=== PATIENT | female | born 1945 | race Caucasian/White ===

== ENCOUNTER 2019-11-26 16:12 | Inpatient (IN) | payer MEDICARE ==
[~2019-11-26] VITALS: Ht 154.9 cm; Wt 80.4 kg
[2019-11-26] MEDS ORDERED: PRED10TA2 PO (16:23)
[2019-11-26] MEDS ORDERED: TRIA37.53 PO (16:23)
[2019-11-26] MEDS ORDERED: LEVO100T5 PO (16:23)
[2019-11-26] MEDS ORDERED: ONDA-83 PO (16:23)
[2019-11-26] MEDS ORDERED: OMEP-218 PO (16:23)
[2019-11-26] MEDS ORDERED: CEFD1CAP8 PO (16:23)
[2019-11-26] MEDS ORDERED: ATEN50TA2 PO (16:23)
[2019-11-26] MEDS: NS 1,000 ML IV SCH (17:23)
[2019-11-26 17:50] LABS: BASO # 0.1 10^3/uL (0.0-0.2); BASO % 0.2 % (0.0-1.0); HEMATOCRIT 35.1 % (36.0-47.0); HEMOGLOBIN 12.7 g/dl (12.0-15.5); LYMPH % 4.1 % (24.0-44.0); MEAN CORPUSCULAR HEMOGLOBIN 32.3 pg (27.0-33.0); MEAN CORPUSCULAR HGB CONC 36.2 g/dl (32.0-36.5); MEAN CORPUSCULAR VOLUME 89.3 fl (80.0-96.0); MONO % 4.1 % (0.0-5.0); NEUTROPHILS # 21.6 10^3/uL (1.5-8.5); NEUTROPHILS % 90.2 % (36.0-66.0); PLATELET COUNT, AUTOMATED 373 10^3/uL (150-450); RED BLOOD COUNT 3.93 10^6/uL (4.00-5.40); WHITE BLOOD COUNT 23.9 10^3/uL (4.0-10.0)
[2019-11-26 18:01] LABS: OSMOLALITY SERUM 251 MOSM/KG (280-301)
--- NOTE | 2019-11-26 18:06 | REP ---
Right knee series: Five views. History: Hyponatremia. Findings: Five views of the right knee demonstrate osteoarthritic patellofemoral spurring. There is mild medial and lateral compartment osteoarthritic spurring as well. There is old spurring at the proximal attachment of the medial collateral ligament. There is fullness in the suprapatellar bursa suggestive of a joint effusion. Impression: Three compartment osteoarthritis. Probable joint effusion. No fracture or other acute abnormality. Electronically Signed by Andres Barney MD 11/26/2019 05:57 P
--- NOTE | 2019-11-26 18:07 | REP ---
Chest x-ray: Single view. History: Hyponatremia. No comparison study. Findings: Monitoring electrodes are seen. The lungs are symmetrically aerated and clear. The pleural angles are sharp. Right hemidiaphragm is slightly elevated. The heart is not enlarged. Aorta is calcific and a little tortuous. There are degenerative changes in the thoracic spine. Impression: Slightly elevated right hemidiaphragm. Otherwise no acute disease. Electronically Signed by Andres Barney MD 11/26/2019 05:58 P
[2019-11-26 18:12] LABS: CREATININE,RANDOM URINE 85.6 MG/DL
[2019-11-26 18:18] LABS: ERYTHROCYTE SEDIMENTATION RATE 79 mm/hr (0-30)
[2019-11-26 18:55] LABS: ALBUMIN 2.6 GM/DL (3.2-5.2); ALT/SGPT 35 U/L (12-78); BILIRUBIN,DIRECT 0.3 MG/DL (0.0-0.2); BILIRUBIN,TOTAL 0.7 MG/DL (0.2-1.0); BLOOD UREA NITROGEN 29 MG/DL (7-18); CALCIUM LEVEL 9.1 MG/DL (8.8-10.2); CARBON DIOXIDE LEVEL 28 MEQ/L (21-32); CHLORIDE LEVEL 77 MEQ/L (98-107); CREATININE FOR GFR 1.17 MG/DL (0.55-1.30); FREE T4 1.38 NG/DL (0.76-1.46); GLOMERULAR FILTRATION RATE 47.9 (>39); GLUCOSE, FASTING 133 MG/DL (70-100); LIPASE 87 U/L (73-393); MAGNESIUM LEVEL 1.6 MG/DL (1.8-2.4); POTASSIUM SERUM 3.9 MEQ/L (3.5-5.1); RHEUMATOID FACTOR QUANT < 10.0 IU/ML (<15.0); SODIUM LEVEL 117 MEQ/L (136-145); TOTAL PROTEIN 6.9 GM/DL (6.4-8.2)
--- NOTE | 2019-11-26 18:59 | ECGEPIP ---
[facility] - ED Test Date: 2019-11-26 Pat Name: BISMARK NEGRO Department: Room: - Gender: Female Technical Sales Director: apoorva : 1945 Requested By: Claire Metcalf Order Number: [id number] Reading MD: Juan Spivey Measurements Intervals [place] Rate: 65 P: 51 NC: 197 QRS: -27 QRSD: 105 T: 33 QT: 424 QTc: 443 Interpretive Statements SINUS RHYTHM POSSIBLE LEFT ATRIAL ENLARGEMENT BORDERLINE LEFT AXIS DEVIATION POOR R WAVE PROGRESSION NO PRIORS FOR COMPARISON Electronically Signed on 11-26-2019 18:59:30 EST by Juan Spivey
[2019-11-26] MEDS ORDERED: NS 1,000 ML IV ONE (19:15)
[2019-11-26] MEDS ORDERED: LIDOCAINE 1% SDV INJ 30 ML VIAL SC SCH (19:45)
[2019-11-26] MEDS ORDERED: LIDOCAINE 1% SDV 5 ML VIAL As Ordered ONE (19:57)
[2019-11-26] MEDS ORDERED: MAG SULF 1GM/100ML (MAG RUN) 1 GM in IV 1 EA IV ONE (20:00)
[2019-11-26] MEDS: OMEPRAZOLE 20 MG CAP PO SCH (21:00)
[2019-11-26] MEDS ORDERED: CEFDINIR 300 MG CAP (OMNICEF) PO SCH (21:00)
[2019-11-26] MEDS: ASPIRIN 81 MG ENTERIC TAB PO SCH (21:00)
[2019-11-26] MEDS ORDERED: KETOROLAC 30 MG/ML VIAL (J1885) IV ONE (21:45)
[2019-11-26] MEDS ORDERED: MORPHINE 2 MG/ML 1ML VIAL (J2270) IV PRN (21:45)
[2019-11-26 22:05] LABS: URIC ACID 7.2 MG/DL (2.6-6.0)
[2019-11-26] MEDS ORDERED: ASPI81TA85 PO (22:25)
[2019-11-27] VITALS (8 sets, daily range): BP systolic 105–149; BP diastolic 54–72
[2019-11-27] MEDS ORDERED: cefTRIAXone SOD 2 GM in D5W MINI-BAG PLUS 50 ML IV SCH ×2
[2019-11-27] MEDS ORDERED: MAG SULF 1GM/100ML (MAG RUN) 1 GM in IV 1 EA IV ONE ×2
[2019-11-27] MEDS ORDERED: ONDANSETRON 4 MG TAB (S0181) PO PRN
[2019-11-27 00:24] LABS: BLOOD UREA NITROGEN 29 MG/DL (7-18); CALCIUM LEVEL 8.4 MG/DL (8.8-10.2); CARBON DIOXIDE LEVEL 25 MEQ/L (21-32); CHLORIDE LEVEL 84 MEQ/L (98-107); CREATININE FOR GFR 1.04 MG/DL (0.55-1.30); GLOMERULAR FILTRATION RATE 54.8 (>39); GLUCOSE, FASTING 163 MG/DL (70-100); POTASSIUM SERUM 3.6 MEQ/L (3.5-5.1); RHEUMATOID FACTOR QUANT < 10.0 IU/ML (<15.0); SODIUM LEVEL 118 MEQ/L (136-145); URIC ACID 6.9 MG/DL (2.6-6.0)
[2019-11-27 00:34] LABS: OSMOLALITY SERUM 251 MOSM/KG (280-301)
[2019-11-27] MEDS: NS 1,000 ML IV SCH ×4 (02:22→23:56)
[2019-11-27] MEDS: LEVOTHYROXINE 100MCG TABLET (0.1MG) PO SCH (05:51)
--- NOTE | 2019-11-27 08:01 | REP ---
Clinical: Pain. Technique: AP, lateral, bilateral oblique views of the right and left hand. Findings: Right hand demonstrates generalized age-related changes as well as elements of moderate to advanced osteoarthritic disease involving the distal interphalangeal joints and to a lesser extent the proximal interphalangeal joint. Findings include subchondral sclerosis, joint space narrowing, marginal spurring. There is chronic subluxation noted at the second DIP joint. No acute fracture or dislocation. Left hand demonstrates generalized age-related changes as well as mild/early moderate osteoarthritic disease. Findings include subchondral sclerosis and joint space narrowing primarily involving the distal interphalangeal joints and proximal interphalangeal joints. No acute fracture or dislocation. Impression: Moderate/advanced osteoarthritic changes primarily involving the right hand and DIP joints. Electronically Signed by Durga Hull MD 11/27/2019 07:53 A
[2019-11-27 08:29] LABS: BLOOD UREA NITROGEN 33 MG/DL (7-18); CALCIUM LEVEL 8.5 MG/DL (8.8-10.2); CARBON DIOXIDE LEVEL 27 MEQ/L (21-32); CHLORIDE LEVEL 86 MEQ/L (98-107); CREATININE FOR GFR 0.96 MG/DL (0.55-1.30); GLOMERULAR FILTRATION RATE > 60.0 (>39); GLUCOSE, FASTING 94 MG/DL (70-100); POTASSIUM SERUM 3.6 MEQ/L (3.5-5.1); SODIUM LEVEL 122 MEQ/L (136-145)
[2019-11-27] MEDS: atenoloL 50 MG TAB PO SCH (09:00)
[2019-11-27] MEDS: predniSONE 10 MG TAB PO SCH (12:17)
[2019-11-27 12:51] LABS: BLOOD UREA NITROGEN 33 MG/DL (7-18); CALCIUM LEVEL 8.8 MG/DL (8.8-10.2); CARBON DIOXIDE LEVEL 26 MEQ/L (21-32); CHLORIDE LEVEL 86 MEQ/L (98-107); CREATININE FOR GFR 0.92 MG/DL (0.55-1.30); GLOMERULAR FILTRATION RATE > 60.0 (>39); GLUCOSE, FASTING 100 MG/DL (70-100); POTASSIUM SERUM 3.5 MEQ/L (3.5-5.1); SODIUM LEVEL 120 MEQ/L (136-145)
--- NOTE | 2019-11-27 17:24 | HPE ---
DATE OF ADMISSION: 11/26/2019 CHIEF COMPLAINT: Right knee pain and swelling, bilateral thumb and fourth finger joint pains. HISTORY OF PRESENT ILLNESS: This is a 74-year-old female with a history of hypertension, hyperlipidemia, reflux, thyroid nodule on chronic Synthroid, type 2 diabetes, who complained of metacarpophalangeal joint and proximal interphalangeal joint pain in bilateral hands since Saturday and . She had a similar episode in October when she had pain, rated as 10 out of 10, without any swelling but it lasted all day, unable to use her fingers and felt weak, unable to get up despite Tylenol two tablets every 6 hours, prompting her to see her primary care provider, Dr. Trinh, today. She has also had increasing pain initially in the left knee without any effusion, worse when she stands up and starts to walk around, 10 out of 10 pain, better when she is sitting and not moving. Has been using a cane without fever, chills, trauma or falls at home. The right knee pain has started today and started to swell that she noticed since yesterday. She was seen at [facility] by Dr. Trinh, who did blood tests. She was noted to have a white count of 23,000 and was subsequently given Augmentin to take and prompted to come to the emergency room for further evaluation when her sodium level came back at 117. The patient has noticed some blurred vision over the last 2 days. No headaches. No confusion. No changes in memory. No seizure like activity. No prior episode of low sodium level. The patient denies drinking copious amounts of liquids, alcoholic beverages, and has been compliant with her medications. The patient was given prednisone and cefdinir and was asked to come to the emergency room for evaluation. Chest x- ray was normal. Serum and urine osmolarity and uric acid were not taken on admission. X-ray of the right knee shows probable joint effusion. Attempt by emergency room physician, Dr. Jose Cruz Ga, to aspirate and perform an arthrocentesis was unsuccessful. The patient was afebrile, but sed rate was 43 and ESR was 79. Procalcitonin level is pending. The patient otherwise denies any fever, chills, changes in weight, nasal congestion, sore throat, ear discharge. SHe does complain of blurred vision without any diplopia. Denies any headache, nausea, vomiting, diarrhea, abdominal pain, polydipsia or polyuria, dysuria, urgency, frequency, chest pain, pressure or tightness, palpitations, lightheadedness, dizziness, upper or lower extremity weakness. Secondary to severe pain, unable to perform her activities of daily living. The patient says that the pain in her joints in the bilateral hands were symmetric and started in early October, improved and then returned again now, now involving the left knee and the right knee. PAST MEDICAL HISTORY: 1. Hypertension. 2. Hyperlipidemia. 3. Reflux. 4. History of thyroid nodule, status post radiation. 5. Type 2 diabetes. 6. Small hiatal hernia. ALLERGIES: No known drug allergies. PAST SURGICAL HISTORY: 1. Ankle surgery. FAMILY HISTORY: Paternal and maternal grandparents are both . Brother of heart replacement complications. Father with lock jaw. Mother with diabetes. HOME MEDICATIONS: - triamterene/hydrochlorothiazide 37.5/25 mg daily - aspirin 81 mg at night - atenolol 50 mg daily - cefdinir 300 mg twice a day - levothyroxine 100 mcg daily - Prilosec 20 mg at night - Zofran 4 mg every 6 hours as needed - prednisone 10 mg as directed REVIEW OF SYSTEMS: As per history of present illness. 12-point system otherwise negative. PHYSICAL EXAMINATION: VITAL SIGNS: Temperature 98.1, pulse 64, respiratory rate 18, blood pressure 141/68, 97% on room air. GENERAL: The patient is awake, alert, oriented times three. Answering questions appropriately. No confusion. Face is symmetric. Tongue is midline. No jugular venous distention (JVD) or thyromegaly. No cervical lymphadenopathy. Moist mucous membranes. LUNGS: Clear to auscultation. No wheezing, rales or rhonchi. HEART: S1, S2. Sinus rhythm. No murmurs, rubs or gallops. ABDOMEN: Soft, nontender, nondistended. Positive bowel sounds. EXTREMITIES: No pitting edema. Right knee has minimal joint effusion, limited range of motion due to pain. The patient's metacarpophalangeal, proximal interphalangeal, and distal interphalangeal joints are without any effusion. White count 23.9, hemoglobin 12, hematocrit 35, platelet count 373. Sodium 117, potassium 3.9, chloride 77, bicarbonate 28, BUN 29, creatinine 1.17, glucose 133, osmolarity 251, lactic acid 1.8, uric acid 7.2, calcium 9.1, magnesium 1.6, total bilirubin 0.7, direct bilirubin 0.3, AST 44, ALT 35, alkaline phosphatase 104, C-reactive protein 43, total protein 6.9, albumin 2.6, lipase 87, procalcitonin pending, TSH 2.8, free T4 1.38. Two sets of blood cultures are pending. Chest x-ray showed no acute cardiopulmonary disease. X-ray of the knee showed three compartment osteoarthritis, probable joint effusion, no fracture or other acute abnormality. ASSESSMENT AND PLAN: This is a 74-year-old female with a history of hypertension, hot thyroid nodule, status post thyroid nodule resection, hiatal hernia, dyslipidemia on chronic triamterene/hydrochlorothiazide, who presented to her primary care provider with complaints of small joints of the hands pain without swelling and right knee effusion without any signs of trauma, suspicious for polyrheumatica versus rheumatoid arthritis. The patient was found to have elevated white count, sed rate and C-reactive protein, sodium of 117, prompting her primary care provider to send her to the emergency room for further evaluation. The patient was found to have a sodium level of 117 with white count of 23,000. She did receive prednisone but not before blood work was done. Sed rate was elevated at 79 with C-reactive protein elevated at 43. X-ray of the right knee shows probable small effusion. The patient, despite having a sodium level of 117, was awake, alert, providing history. She did complain of slight blurred vision. She has been given intravenous fluids. Repeat metabolic panel is still pending. IMPRESSION: 1. Symptomatic hyponatremia with complaints of blurred vision. The patient is awaiting serum and urine osmolarity, uric acid. IV fluids have been given. Every 6 hour metabolic panel. To avoid central pontine myolysis, goal sodium should not be more than 10 to 12 mEq over the next 24 hours with the first sodium level taken at 1625 hours on 11/26/2019. 2. Arthritis. Differential diagnosis rheumatoid versus osteoarthritis and septic bursitis. At this time, the patient will be evaluated for rheumatoid arthritis. We will check anti citrullinated antibody. Sed rate, C-reactive protein, have already been checked. Rheumatoid factor. X-ray of the hands to check for characteristic findings of rheumatoid arthritis. TSH is within normal limits. Check procalcitonin. The patient has been started on cefdinir. No fluid was obtained from the attempted arthrocentesis of the right knee. Therefore, would proceed with intravenous ceftriaxone for now. 3. Hypothyroidism. Continue on current dose of Synthroid. 4. Hypertension. Due to severe hyponatremia, we will hold off on the patient's triamterene and hydrochlorothiazide. WE will continue with atenolol for now. If needed, we will add Norvasc or beta blockers. 5. Deep vein thrombosis (DVT) prophylaxis with compression stockings. 6. Reflux and hiatal hernia. Continue on Prilosec. CODE STATUS: FULL CODE. Diet is 2 gram sodium. MTDD
[2019-11-27 18:57] LABS: CALCIUM LEVEL 8.6 MG/DL (8.8-10.2); CREATININE FOR GFR 1.01 MG/DL (0.55-1.30); GLOMERULAR FILTRATION RATE 56.7 (>39); POTASSIUM SERUM 4.2 MEQ/L (3.5-5.1)
[2019-11-27 19:07] LABS: OSMOLALITY URINE 235 MOSM/KG (500-800)
[2019-11-27 19:14] LABS: SODIUM,RANDOM URINE 18 MEQ/L
[2019-11-27] MEDS ORDERED: POLYVINYL ALCOHOL OPHTH SOLN 15 ML(LIQUITEARS) OU PRN (20:00)
--- NOTE | 2019-11-27 20:36 | IPNPDOC ---
Text Note Date of Service The patient was seen on 11/27/19. NOTE Subjective: -Feels better this morning. -Reports that her symptoms essentially began with migratory arthritic picture with some swelling in her knees. She then just felt unwell such that she decided to go to the doctor where she was found to have electrolyte derrangements and was sent to the ED. While here was found to have a leukocytosis with neutrophilic predominance, had a dry tap of L knee, was hyponatremic to 119, with high ESR and procalcitonin. -Was placed on NS and correcting at an acceptable rate Objective: General: No acute distress, eating breakfast, conversant HEENT: NCAT, no facial rashes noted, PERRLA, EOMI, MMM Pulm: CTAB Cardiac: RRR, no mrg Abd: obese, soft, NTND, normoactive Ext: No LE edema, hands with no redness around joints, knees R appears bigger than left, with evident of tap site, moving all extremities without limitations. DIP joints of hands with some deformities Neuro: AOx3, full strength in all 4 extremities Labs: Reviewed. Na now 124. Initial serum osmoles 251 (low), urine osmoles 479(= (high), urine sodium 15 Assessment: 74 yo W who presented with generalized weakness, migratory arthritic complaints and feeling unwell and found to have significant hyponatremia that initially appeared c/w SIADH correcting nicely with slow NS with Q6H with elevated inflammatory markers and leukocytosis c/f a rheumatologic condition vs. in fectious etiologies such as tickborne illness even though unlikely at this time, will check and switch empiric antibiotic to doxy. Migratory arthritic complaints: -empiric doxy -lyme screening -follow up rheumatology labs -was started on prednisone by admitter, will continue for now without clear e tiology, should bring relief leukocytosis: -follow up blood cultures, UA/UCx -follow up lyme study -CXR clear -joint without much fluids, no hotness to touch, pain or purulent material recovered -continue empiric doxy Hypothyroidism: -continue home Synthroid Hyponatremia: -initial set of labs appeared like SIADH, however with normal CXR, normal Ca -correcting appropriately at 100cc/hr NS, continue Q6H BMPs Diet: regular DVT ppx: lovenox Diet: regular VS,Fishbone, I+O VS, Fishbone, I+O Laboratory Tests 11/26/19 23:49 11/27/19 07:53 11/27/19 11:49 Vital Signs Date Time Temp Pulse Resp B/P (MAP) Pulse Ox O2 Delivery O2 Flow Rate FiO2 11/27/19 15:31 97.4 70 20 120/57 (78) 92 Room Air I&O- Last 24 Hours up to 6 AM 11/27/19 06:00 Intake Total 1790 ml Output Total 0 ml Balance 1790 ml JORDYN MEDINA MD Nov 27, 2019 18:51
[2019-11-27] MEDS: OMEPRAZOLE 20 MG CAP PO SCH (21:25)
[2019-11-27] MEDS: ASPIRIN 81 MG ENTERIC TAB PO SCH (21:25)
[2019-11-27] MEDS: ENOXAPARIN 40 MG/0.4 ML SYRINGE (J1650) SC SCH (21:25)
[2019-11-27] MEDS: DOXYCYCLINE HYCLATE 100 MG in D5W MINI-BAG PLUS 100 ML IV SCH (21:26)
[2019-11-27] MEDS ORDERED: POLYVINYL ALCOHOL OPHTH SOLN 15 ML(LIQUITEARS) OU SCH (23:30)
[2019-11-28] VITALS: BP 140/68
[2019-11-28 00:37] LABS: BLOOD UREA NITROGEN 29 MG/DL (7-18); CALCIUM LEVEL 8.7 MG/DL (8.8-10.2); CARBON DIOXIDE LEVEL 28 MEQ/L (21-32); CHLORIDE LEVEL 93 MEQ/L (98-107); CREATININE FOR GFR 0.84 MG/DL (0.55-1.30); GLOMERULAR FILTRATION RATE > 60.0 (>39); GLUCOSE, FASTING 129 MG/DL (70-100); POTASSIUM SERUM 4.5 MEQ/L (3.5-5.1); SODIUM LEVEL 129 MEQ/L (136-145)
[2019-11-28 03:37] LABS: BLOOD UREA NITROGEN 26 MG/DL (7-18); CALCIUM LEVEL 8.2 MG/DL (8.8-10.2); CARBON DIOXIDE LEVEL 27 MEQ/L (21-32); CHLORIDE LEVEL 98 MEQ/L (98-107); CREATININE FOR GFR 0.74 MG/DL (0.55-1.30); GLOMERULAR FILTRATION RATE > 60.0 (>39); GLUCOSE, FASTING 118 MG/DL (70-100); POTASSIUM SERUM 4.4 MEQ/L (3.5-5.1); SODIUM LEVEL 131 MEQ/L (136-145)
[2019-11-28 04:00] VITALS: BP 142/78
[2019-11-28] MEDS: LEVOTHYROXINE 100MCG TABLET (0.1MG) PO SCH (06:32)
[2019-11-28 07:01] LABS: GLUCOSE, FASTING 98 MG/DL (70-100)
[2019-11-28 07:02] LABS: BLOOD UREA NITROGEN 23 MG/DL (7-18); CALCIUM LEVEL 8.7 MG/DL (8.8-10.2); CARBON DIOXIDE LEVEL 28 MEQ/L (21-32); CHLORIDE LEVEL 98 MEQ/L (98-107); CREATININE FOR GFR 0.74 MG/DL (0.55-1.30); GLOMERULAR FILTRATION RATE > 60.0 (>39); SODIUM LEVEL 132 MEQ/L (136-145)
[2019-11-28 08:00] VITALS: BP 162/72
[2019-11-28] MEDS: predniSONE 10 MG TAB PO SCH (09:01)
[2019-11-28 09:02] VITALS: BP 162/72
[2019-11-28] MEDS: ENOXAPARIN 40 MG/0.4 ML SYRINGE (J1650) SC SCH (09:02)
[2019-11-28] MEDS: DOXYCYCLINE HYCLATE 100 MG in D5W MINI-BAG PLUS 100 ML IV SCH (09:02)
[2019-11-28] MEDS: atenoloL 50 MG TAB PO SCH (09:02)
[2019-11-28 09:17] LABS: HEMATOCRIT 33.3 % (36.0-47.0); HEMOGLOBIN 11.4 g/dl (12.0-15.5); MEAN CORPUSCULAR HEMOGLOBIN 31.7 pg (27.0-33.0); MEAN CORPUSCULAR HGB CONC 34.2 g/dl (32.0-36.5); MEAN CORPUSCULAR VOLUME 92.5 fl (80.0-96.0); PLATELET COUNT, AUTOMATED 381 10^3/uL (150-450); WHITE BLOOD COUNT 14.2 10^3/uL (4.0-10.0)
[2019-11-28] MEDS ORDERED: SLF 3 ML SYR IV PRN (11:30)
[2019-11-28] MEDS ORDERED: AMLO5TAB6 PO (11:33)
[2019-11-28 12:00] VITALS: BP 130/74
[2019-11-28] MEDS ORDERED: SLF 3 ML SYR IV SCH (14:00)
[2019-11-28 14:15] LABS: ANTINUCLEAR ANTIBODIES DIRECT Negative (Negative)
--- NOTE | 2019-11-28 20:27 | DS.PDOC ---
Discharge Summary General Date of Admission Nov 26, 2019 at 21:38 Date of Discharge 11/28/2019 Attending Physician: JORDYN MEDINA MD Discharge Summary PROCEDURES PERFORMED DURING STAY: None ADMITTING DIAGNOSES: 1. Hyponatremia 2. Undifferentiated polyarthritis DISCHARGE DIAGNOSES: 1. Hyponatremia 2. Undifferentiated polyarthritis 3. Hypertension. 4. Hyperlipidemia. 5. Reflux. 6. Type 2 diabetes. COMPLICATIONS/CHIEF COMPLAINT: Hyponatremia. HISTORY OF PRESENT ILLNESS: 74 yo W who presented with generalized weakness, migratory arthritic complaints and feeling unwell. HOSPITAL COURSE: 74 yo W who presented with generalized weakness, migratory arthritic complaints and feeling unwell and found to have significant hyponatremia that initially appeared c/w SIADH that was slowly corrected with normal saline with frequent na checks while hold her thiazide diuretic. With regard to her polyarthritis, it appears inflammatory in nature with elevated inflammatory markers and leukocytosis c/f a rheumatologic condition vs. infectious etiologies and she was kept on her an outpatient script of a pred taper while she was placed on empiric antibiotics. Blood and urine cultures were negative, and on day 2 she felt back to her baseline and was eager to get home with the understand that all the rheumatologic and infectious workup labs that were sent should find their way to her PCP so they do not repeat these investigations I am confident they will be querying sometime in the future if her polyarthritis persists. I advised her to have her PCP request the records once the labs have resulted. She is otherwise being discharged home to complete her prednisone taper and stopped her combination thiazide in the setting of the recent hyponatremia and started her on amlodipine instead. DISCHARGE MEDICATIONS: Please see below. ALLERGIES: Please see below. PHYSICAL EXAMINATION ON DISCHARGE: VITAL SIGNS: Please see below. General: No acute distress, eating breakfast, conversant HEENT: NCAT, no facial rashes noted, PERRLA, EOMI, MMM Pulm: CTAB Cardiac: RRR, no mrg Abd: obese, soft, NTND, normoactive Ext: No LE edema, hands with no redness around joints, moving all extremities without limitations. DIP joints of hands with some deformities. Neuro: AOx3, full strength in all 4 extremities LABORATORY DATA: Please see below. IMAGING: R knee XR: Three compartment osteoarthritis. Probable joint effusion. No fracture or other acute abnormality. CXR: Slightly elevated right hemidiaphragm. Otherwise no acute disease. Hand XR: Moderate/advanced osteoarthritic changes primarily involving the right hand and DIP joints. PROGNOSIS: Good ACTIVITY: As tolerated. DIET: Regular DISCHARGE PLAN: Home with PCP follow up DISPOSITION: 01 Home, Self-Care. DISCHARGE INSTRUCTIONS: 1.Please ask your PCP to request the records of your admission, particularly joan mcadams for rheumatology workup ITEMS TO FOLLOWUP ON ON OUTPATIENT: 1. Polyarthritis 2. Hyponatremia DISCHARGE CONDITION: Stable TIME SPENT ON DISCHARGE: 56 minutes. Vital Signs/I&Os Vital Signs Date Time Temp Pulse Resp B/P (MAP) Pulse Ox O2 Delivery O2 Flow Rate FiO2 11/28/19 12:00 96.1 63 18 130/74 (92) 96 Room Air I&O- Last 24 Hours up to 6 AM 11/28/19 05:59 Intake Total 2080 ml Output Total 3100 ml Balance -1020 ml Laboratory Data Labs 24H Laboratory Tests 2 11/27/19 21:37: Urine Color STRAW, Urine Appearance CLEAR, Urine pH 6.0, Urine Specific [place] 1.005, Urine Protein NEGATIVE, Urine Glucose (UA) 1+H, Urine Ketones NEGATIVE, Urine Blood 2+H, Urine Nitrite NEGATIVE, Urine Bilirubin NEGATIVE, Urine Urobilinogen 0.2, Urine Leukocyte Esterase NEGATIVE, Urine WBC (Auto) 1, Urine RBC (Auto) 2, Urine Hyaline Casts (Auto) 0, Urine Bacteria (Auto) 2+H, Urine Squamous Epithelial Cells 0, Urine Sperm (Auto) 11/27/19 23:54: Anion Gap 8, Glomerular Filtration Rate > 60.0, Calcium Level 8.7L 11/28/19 03:02: Anion Gap 6L, Glomerular Filtration Rate > 60.0, Calcium Level 8.2L 11/28/19 06:14: Anion Gap 6L, Glomerular Filtration Rate > 60.0, Calcium Level 8.7L, Nucleated Red Blood Cells % (auto) 0.0 CBC/BMP Laboratory Tests 11/27/19 23:54 11/28/19 03:02 11/28/19 06:14 Microbiology Microbiology 11/26/19 Blood Culture - Preliminary, Resulted No Growth after 48 hours. All Specime... 11/26/19 Blood Culture - Preliminary, Resulted No Growth after 48 hours. All Specime... Discharge Medications Scheduled Amlodipine Besylate (Amlodipine Besylate) 5 Mg Tablet, 1 TAB PO DAILY Aspirin (Aspir 81) 81 Mg Tablet.dr, 81 MG PO QHS, (Reported) Atenolol (Atenolol) 50 Mg Tablet, 50 MG PO DAILY, (Reported) Cefdinir (Cefdinir) 300 Mg Capsule, 300 MG PO BID, (Reported) TOOK FIRST DOSE 11/26/19 Levothyroxine Sodium (Levothyroxine Sodium) 100 Mcg Tablet, 100 MCG PO DAILY, (Reported) Omeprazole (Omeprazole) 20 Mg Capsule.dr, 20 MG PO QHS, (Reported) Prednisone (Prednisone) 10 Mg Tablet, 10 MG PO ASDIRECTED, (Reported) taper dose started on 11/26/19 4 tabs qd x2 days, 3 tabs qd x 2 days, 2 tabs qd x 2 days then 1 tab qd Scheduled PRN Ondansetron HCl (Ondansetron HCl) 4 Mg Tablet, 4 MG PO Q6H PRN for NAUSEA OR VOMITING, (Reported) Allergies Coded Allergies: No Known Allergies (Unverified , 11/26/19) JORDYN MEDINA MD Nov 28, 2019 20:27
[2019-12-02 00:09] LABS: Lyme Disease IgG/IgM Antibodie <0.91 ISR (0.00-0.90); Lyme Disease IgM Ab Quantitati <0.80 index (0.00-0.79)
== END 2019-11-28 13:25 | disposition home or self-care (01) | DRG 641 ==
LOC: M ED 16:12 → M ED INP 21:38 → EEVIPCON 21:38 → ENRESERVTM 11-27 14:26 → ENRESERVDT 11-27 14:26 → M PCU 11-27 16:05
PROVIDERS: ADMIT General Practice; ATTEND Internal Medicine
DX: E87.1 Hypo-osmolality and hyponatremia (principal); I10 Essential (primary) hypertension; E78.5 Hyperlipidemia, unspecified; K21.9 Gastro-esophageal reflux disease without esophagitis; E11.9 Type 2 diabetes mellitus without complications; M13.89 Other specified arthritis, multiple sites; Z79.899 Other long term (current) drug therapy; Z79.82 Long term (current) use of aspirin; K44.9 Diaphragmatic hernia without obstruction or gangrene; D72.829 Elevated white blood cell count, unspecified

== ENCOUNTER → 2020-07-07 | Outpatient (CLI) | payer MEDICARE ==
[~2020-07-07] MED LIST: AMLO1TAB24 PO; ASPI81TA86 PO; ATEN50TA2 PO; CEFD1CAP8 PO; LEVO100T5 PO; OMEP-218 PO; ONDA-83 PO; PRED10TA2 PO; TRIA37.53 PO
[2020-07-07 14:25] LABS: C REACTIVE PROTEIN QUANTITATIV < 0.30 MG/DL (0.00-0.30); RHEUMATOID FACTOR QUANT 69.4 IU/ML (<15.0)
[2020-07-07 14:36] LABS: HEPATITIS B SURFACE ANTIBODY NEGATIVE (POSITIVE)
[2020-07-07 14:47] LABS: HEPATITIS B SURFACE ANTIGEN NEGATIVE (NEGATIVE)
[2020-07-07 15:15] LABS: HEPATITIS C VIRUS ABY INDEX 0.1 INDEX (<0.8)
[2020-07-08 23:07] LABS: ANA (HEP2) Positive (.); HEPATITIS B CORE ANTIBODY IGG Negative (Negative)
== END ==
LOC: M PLALAB 10:54
PROVIDERS: ATTEND Internal Medicine
DX: R76.8 Other specified abnormal immunological findings in serum (principal); R76.0 Raised antibody titer

== ENCOUNTER → 2020-07-07 | Outpatient (CLI) | payer MEDICARE ==
--- NOTE | 2020-07-12 13:59 | DEXA ---
AP SPINE L1 - L4 1.199 0.0 1.8 LT FEMUR TOTAL 1.010 0.0 1.8 LT NECK 0.898 -1.0 1.0 RT FEMUR TOTAL 0.982 -0.2 1.6 RT NECK 0.860 -1.3 0.7 TOTAL BODY TOTAL OTHER COMMENTS: Normal bone densitometry of the spine. There is low bone density of the hips. The density of the right hip has decreased 6.1% since 05/23/2017. The decreased density of the spine does represent a significant change. The decreased density of the left hip does represent significant change. The decreased density of the right hip does represent significant change. The density of the spine has increased 16.0% since the initial exam on 12/27/2009. The decreased 2.3% since the most recent exam on 05/23/2012. The density of the left hip has increased 2.4% since the initial exam on 12/27/2009. The density of the left hip has decreased 4.8% since the most recent exam on 05/23/2012. FOLLOW-UP: Recommendation for the next bone density exam: 2 years. ANDREW
== END ==
LOC: M WHC 09:46
PROVIDERS: ATTEND Internal Medicine
DX: R76.8 Other specified abnormal immunological findings in serum (principal); R76.0 Raised antibody titer

== ENCOUNTER → 2020-08-29 | Outpatient (CLI) | payer MEDICARE ==
--- NOTE | 2020-08-29 13:24 | REPPI ---
INDICATION: M05.79 RHUEMATOID ARTHRITIS INVOLVING MULTIPLE SITES WITH PO COMPARISON: None. TECHNIQUE: AP, lateral, bilateral oblique views right and left wrist. FINDINGS: The carpal bones, surrounding osseous structures, soft tissues, and joint spaces demonstrate relatively symmetric generalized age-related arthritic changes. No significant osteophytosis, periarticular lucencies or lytic lesions, no calcified loose bodies or chondrocalcinosis. No acute fracture or dislocation IMPRESSION: Relatively symmetric generalized bilateral age-related degenerative changes. No overt inflammatory arthritic changes are appreciated. <Electronically signed by Durga Hull > 08/29/20 [id number]
--- NOTE | 2020-08-29 13:28 | REPPI ---
INDICATION: M05.79 RHUEMATOID ARTHRITIS INVOLVING MULTIPLE SITES WITH PO COMPARISON: None. TECHNIQUE: AP, lateral, bilateral oblique views right and left ankle. FINDINGS: Right ankle demonstrates generalized age-related changes. Ankle mortise intact. No acute fracture or dislocation. No significant swelling. Left ankle demonstrates prior lateral malleolus repair with mild posttraumatic arthritic changes. Ankle mortise intact. No significant swelling. IMPRESSION: Generalized arthritic changes (left greater than right) with evidence for prior left ankle injury. No overt inflammatory arthritic changes appreciated. <Electronically signed by Durga Hull > 08/29/20 [id number]
== END ==
LOC: M PLAIMG 12:01
PROVIDERS: ATTEND Internal Medicine
DX: M85.80 Other specified disorders of bone density and structure, unspecified site (principal); M05.79 Rheumatoid arthritis with rheumatoid factor of multiple sites without organ or systems involvement
CPT/HCPCS: 36415; 73110; 73610; 82306; G0463

== ENCOUNTER → 2020-08-29 | Outpatient (REF) | payer MEDICARE | LOC: M SFHCRHEU 11:34 | PROVIDERS: ATTEND Internal Medicine | DX: M85.80 Other specified disorders of bone density and structure, unspecified site (principal) ==

== ENCOUNTER → 2020-10-14 | Outpatient (REF) | payer MEDICARE ==
[2020-10-14 12:47] LABS: BASO # 0.1 10^3/uL (0.0-0.2); BASO % 0.5 % (0.0-1.0); EOS # 0.1 10^3/uL (0.0-0.5); EOS % 1.4 % (0.0-3.0); HEMATOCRIT 43.9 % (36.0-47.0); LYMPH # 1.9 10^3/uL (1.5-5.0); LYMPH % 20.1 % (24.0-44.0); MEAN CORPUSCULAR HEMOGLOBIN 30.7 pg (27.0-33.0); MEAN CORPUSCULAR HGB CONC 31.9 g/dl (32.0-36.5); MEAN CORPUSCULAR VOLUME 96.3 fl (80.0-96.0); MONO # 0.4 10^3/uL (0.0-0.8); MONO % 4.8 % (0.0-5.0); NEUTROPHILS # 6.7 10^3/uL (1.5-8.5); NEUTROPHILS % 72.7 % (36.0-66.0); PLATELET COUNT, AUTOMATED 233 10^3/uL (150-450); RED BLOOD COUNT 4.56 10^6/uL (4.00-5.40); WHITE BLOOD COUNT 9.2 10^3/uL (4.0-10.0)
[2020-10-14 13:27] LABS: ALBUMIN 3.9 GM/DL (3.2-5.2); BILIRUBIN,DIRECT 0.1 MG/DL (0.0-0.2); BILIRUBIN,TOTAL 0.4 MG/DL (0.2-1.0); CREATININE FOR GFR 1.03 MG/DL (0.55-1.30); GLOMERULAR FILTRATION RATE 55.3 (>39); POTASSIUM SERUM 4.2 MEQ/L (3.5-5.1); TOTAL PROTEIN 7.1 GM/DL (6.4-8.2)
[2020-10-14 13:34] LABS: ERYTHROCYTE SEDIMENTATION RATE 22 mm/hr (0-30)
== END ==
LOC: M PLALAB 11:27
PROVIDERS: ATTEND Internal Medicine
DX: M05.79 Rheumatoid arthritis with rheumatoid factor of multiple sites without organ or systems involvement (principal)

== ENCOUNTER → 2020-10-31 | Outpatient (REF) | payer MEDICARE ==
[2020-10-31 13:41] LABS: BASO # 0.1 10^3/uL (0.0-0.2); BASO % 0.8 % (0.0-1.0); EOS # 0.3 10^3/uL (0.0-0.5); EOS % 3.2 % (0.0-3.0); HEMATOCRIT 42.8 % (36.0-47.0); HEMOGLOBIN 13.7 g/dl (12.0-15.5); LYMPH # 2.5 10^3/uL (1.5-5.0); LYMPH % 32.7 % (24.0-44.0); MEAN CORPUSCULAR HEMOGLOBIN 30.9 pg (27.0-33.0); MEAN CORPUSCULAR VOLUME 96.4 fl (80.0-96.0); MONO # 0.5 10^3/uL (0.0-0.8); MONO % 6.3 % (0.0-5.0); NEUTROPHILS # 4.4 10^3/uL (1.5-8.5); NEUTROPHILS % 56.6 % (36.0-66.0); PLATELET COUNT, AUTOMATED 257 10^3/uL (150-450); RED BLOOD COUNT 4.44 10^6/uL (4.00-5.40); WHITE BLOOD COUNT 7.8 10^3/uL (4.0-10.0)
[2020-10-31 14:08] LABS: ERYTHROCYTE SEDIMENTATION RATE 37 mm/hr (0-30)
[2020-10-31 14:38] LABS: ALBUMIN 3.7 GM/DL (3.2-5.2); ALT/SGPT 30 U/L (12-78); BILIRUBIN,DIRECT 0.1 MG/DL (0.0-0.2); BILIRUBIN,TOTAL 0.6 MG/DL (0.2-1.0); BLOOD UREA NITROGEN 13 MG/DL (7-18); CALCIUM LEVEL 9.6 MG/DL (8.8-10.2); CARBON DIOXIDE LEVEL 29 MEQ/L (21-32); CHLORIDE LEVEL 106 MEQ/L (98-107); CREATININE FOR GFR 0.94 MG/DL (0.55-1.30); GLOMERULAR FILTRATION RATE > 60.0 (>39); GLUCOSE, FASTING 92 MG/DL (70-100); SODIUM LEVEL 142 MEQ/L (136-145); TOTAL PROTEIN 7.2 GM/DL (6.4-8.2)
== END ==
LOC: M PLALAB 10:54
PROVIDERS: ATTEND Internal Medicine
DX: M05.79 Rheumatoid arthritis with rheumatoid factor of multiple sites without organ or systems involvement (principal)

== ENCOUNTER → 2020-11-18 | Outpatient (REF) | payer MEDICARE ==
[2020-11-18 15:12] LABS: BASO # 0.1 10^3/uL (0.0-0.2); BASO % 0.6 % (0.0-1.0); EOS # 0.2 10^3/uL (0.0-0.5); EOS % 2.6 % (0.0-3.0); HEMATOCRIT 41.8 % (36.0-47.0); HEMOGLOBIN 13.8 g/dl (12.0-15.5); LYMPH # 2.4 10^3/uL (1.5-5.0); LYMPH % 26.9 % (24.0-44.0); MEAN CORPUSCULAR HEMOGLOBIN 31.7 pg (27.0-33.0); MEAN CORPUSCULAR VOLUME 95.9 fl (80.0-96.0); MONO # 0.7 10^3/uL (0.0-0.8); MONO % 7.7 % (2.0-8.0); NEUTROPHILS # 5.6 10^3/uL (1.5-8.5); NEUTROPHILS % 61.8 % (36.0-66.0); PLATELET COUNT, AUTOMATED 228 10^3/uL (150-450); RED BLOOD COUNT 4.36 10^6/uL (4.00-5.40)
[2020-11-18 15:41] LABS: ERYTHROCYTE SEDIMENTATION RATE 30 mm/hr (0-30)
[2020-11-18 15:46] LABS: ALBUMIN 3.9 GM/DL (3.2-5.2); BILIRUBIN,DIRECT 0.1 MG/DL (0.0-0.2); BILIRUBIN,TOTAL 0.7 MG/DL (0.2-1.0); CALCIUM LEVEL 9.8 MG/DL (8.8-10.2); CREATININE FOR GFR 0.96 MG/DL (0.55-1.30); POTASSIUM SERUM 4.2 MEQ/L (3.5-5.1); TOTAL PROTEIN 7.4 GM/DL (6.4-8.2)
== END ==
LOC: M PLALAB 13:05
PROVIDERS: ATTEND Internal Medicine
DX: M05.79 Rheumatoid arthritis with rheumatoid factor of multiple sites without organ or systems involvement (principal)

== ENCOUNTER → 2020-12-16 | Outpatient (REF) | payer MEDICARE ==
[2020-12-16 14:02] LABS: BASO # 0.1 10^3/uL (0.0-0.2); BASO % 0.7 % (0.0-1.0); EOS # 0.3 10^3/uL (0.0-0.5); EOS % 3.4 % (0.0-3.0); HEMATOCRIT 41.5 % (36.0-47.0); HEMOGLOBIN 13.8 g/dl (12.0-15.5); LYMPH # 2.2 10^3/uL (1.5-5.0); LYMPH % 27.2 % (24.0-44.0); MEAN CORPUSCULAR HEMOGLOBIN 32.9 pg (27.0-33.0); MEAN CORPUSCULAR HGB CONC 33.3 g/dl (32.0-36.5); MONO # 0.6 10^3/uL (0.0-0.8); MONO % 6.9 % (2.0-8.0); NEUTROPHILS % 61.2 % (36.0-66.0); PLATELET COUNT, AUTOMATED 244 10^3/uL (150-450); RED BLOOD COUNT 4.19 10^6/uL (4.00-5.40); WHITE BLOOD COUNT 8.1 10^3/uL (4.0-10.0)
[2020-12-16 14:33] LABS: ALBUMIN 3.8 GM/DL (3.2-5.2); BILIRUBIN,DIRECT 0.2 MG/DL (0.0-0.2); BILIRUBIN,TOTAL 0.5 MG/DL (0.2-1.0); CALCIUM LEVEL 9.1 MG/DL (8.8-10.2); CREATININE FOR GFR 1.04 MG/DL (0.55-1.30); GLOMERULAR FILTRATION RATE 54.7 (>39); POTASSIUM SERUM 3.9 MEQ/L (3.5-5.1); TOTAL PROTEIN 7.1 GM/DL (6.4-8.2)
[2020-12-16 14:37] LABS: ERYTHROCYTE SEDIMENTATION RATE 29 mm/hr (0-30)
== END ==
LOC: M PLALAB 10:22
PROVIDERS: ATTEND Nurse Practitioner Family
DX: M05.79 Rheumatoid arthritis with rheumatoid factor of multiple sites without organ or systems involvement (principal)

== ENCOUNTER → 2021-01-17 | Outpatient (REF) | payer MEDICARE ==
[2021-01-17 13:40] LABS: BASO # 0.1 10^3/uL (0.0-0.2); BASO % 1.1 % (0.0-1.0); EOS # 0.2 10^3/uL (0.0-0.5); EOS % 2.8 % (0.0-3.0); HEMATOCRIT 43.7 % (36.0-47.0); HEMOGLOBIN 14.2 g/dl (12.0-15.5); LYMPH # 1.7 10^3/uL (1.5-5.0); LYMPH % 21.2 % (24.0-44.0); MEAN CORPUSCULAR HEMOGLOBIN 32.6 pg (27.0-33.0); MEAN CORPUSCULAR HGB CONC 32.5 g/dl (32.0-36.5); MEAN CORPUSCULAR VOLUME 100.2 fl (80.0-96.0); MONO # 0.5 10^3/uL (0.0-0.8); MONO % 5.7 % (2.0-8.0); NEUTROPHILS # 5.6 10^3/uL (1.5-8.5); NEUTROPHILS % 68.7 % (36.0-66.0); PLATELET COUNT, AUTOMATED 288 10^3/uL (150-450); RED BLOOD COUNT 4.36 10^6/uL (4.00-5.40); WHITE BLOOD COUNT 8.2 10^3/uL (4.0-10.0)
[2021-01-17 14:05] LABS: ALBUMIN 4.1 GM/DL (3.2-5.2); ALT/SGPT 101 U/L (12-78); BILIRUBIN,DIRECT 0.1 MG/DL (0.0-0.2); BILIRUBIN,TOTAL 0.6 MG/DL (0.2-1.0); BLOOD UREA NITROGEN 10 MG/DL (7-18); CALCIUM LEVEL 10.1 MG/DL (8.8-10.2); CARBON DIOXIDE LEVEL 29 MEQ/L (21-32); CHLORIDE LEVEL 106 MEQ/L (98-107); CREATININE FOR GFR 0.85 MG/DL (0.55-1.30); GLOMERULAR FILTRATION RATE > 60.0 (>39); GLUCOSE, FASTING 102 MG/DL (70-100); SODIUM LEVEL 140 MEQ/L (136-145); TOTAL PROTEIN 7.7 GM/DL (6.4-8.2)
[2021-01-17 14:15] LABS: ERYTHROCYTE SEDIMENTATION RATE 45 mm/hr (0-30)
== END ==
LOC: M PLALAB 10:30
PROVIDERS: ATTEND Internal Medicine
DX: M05.79 Rheumatoid arthritis with rheumatoid factor of multiple sites without organ or systems involvement (principal)

== ENCOUNTER → 2021-02-23 | Outpatient (REF) | payer MEDICARE ==
[2021-02-23 15:34] LABS: BASO # 0.1 10^3/uL (0.0-0.2); BASO % 1.3 % (0.0-1.0); EOS # 0.3 10^3/uL (0.0-0.5); EOS % 4.1 % (0.0-3.0); HEMATOCRIT 40.5 % (36.0-47.0); HEMOGLOBIN 13.1 g/dl (12.0-15.5); LYMPH # 2.1 10^3/uL (1.5-5.0); LYMPH % 30.4 % (24.0-44.0); MEAN CORPUSCULAR HEMOGLOBIN 32.6 pg (27.0-33.0); MEAN CORPUSCULAR HGB CONC 32.3 g/dl (32.0-36.5); MEAN CORPUSCULAR VOLUME 100.7 fl (80.0-96.0); MONO # 0.7 10^3/uL (0.0-0.8); MONO % 10.2 % (2.0-8.0); NEUTROPHILS # 3.7 10^3/uL (1.5-8.5); PLATELET COUNT, AUTOMATED 231 10^3/uL (150-450); RED BLOOD COUNT 4.02 10^6/uL (4.00-5.40); WHITE BLOOD COUNT 6.9 10^3/uL (4.0-10.0)
[2021-02-23 15:58] LABS: ALBUMIN 3.8 GM/DL (3.2-5.2); ALT/SGPT 88 U/L (12-78); BILIRUBIN,DIRECT 0.2 MG/DL (0.0-0.2); BILIRUBIN,TOTAL 0.6 MG/DL (0.2-1.0); BLOOD UREA NITROGEN 20 MG/DL (7-18); CALCIUM LEVEL 9.4 MG/DL (8.8-10.2); CARBON DIOXIDE LEVEL 29 MEQ/L (21-32); CHLORIDE LEVEL 107 MEQ/L (98-107); CREATININE FOR GFR 0.81 MG/DL (0.55-1.30); GLOMERULAR FILTRATION RATE > 60.0 (>39); GLUCOSE, FASTING 90 MG/DL (70-100); SODIUM LEVEL 141 MEQ/L (136-145); TOTAL PROTEIN 7.1 GM/DL (6.4-8.2)
[2021-02-23 17:02] LABS: ERYTHROCYTE SEDIMENTATION RATE 46 mm/hr (0-30)
== END ==
LOC: M PLALAB 12:34
PROVIDERS: ATTEND Internal Medicine
DX: M05.79 Rheumatoid arthritis with rheumatoid factor of multiple sites without organ or systems involvement (principal)

== ENCOUNTER → 2021-04-07 | Outpatient (CLI) | payer MEDICARE ==
[2021-04-07 13:12] LABS: BASO # 0.1 10^3/uL (0.0-0.2); BASO % 0.9 % (0.0-1.0); EOS # 0.2 10^3/uL (0.0-0.5); EOS % 3.3 % (0.0-3.0); HEMATOCRIT 39.2 % (36.0-47.0); HEMOGLOBIN 12.7 g/dl (12.0-15.5); LYMPH # 1.5 10^3/uL (1.5-5.0); LYMPH % 23.1 % (24.0-44.0); MEAN CORPUSCULAR HEMOGLOBIN 31.8 pg (27.0-33.0); MEAN CORPUSCULAR HGB CONC 32.4 g/dl (32.0-36.5); MEAN CORPUSCULAR VOLUME 98.2 fl (80.0-96.0); MONO # 0.7 10^3/uL (0.0-0.8); MONO % 9.9 % (2.0-8.0); NEUTROPHILS # 4.1 10^3/uL (1.5-8.5); NEUTROPHILS % 61.9 % (36.0-66.0); PLATELET COUNT, AUTOMATED 304 10^3/uL (150-450); RED BLOOD COUNT 3.99 10^6/uL (4.00-5.40); WHITE BLOOD COUNT 6.6 10^3/uL (4.0-10.0)
[2021-04-07 13:39] LABS: ALBUMIN 3.4 GM/DL (3.2-5.2); ALT/SGPT 23 U/L (12-78); BILIRUBIN,DIRECT 0.1 MG/DL (0.0-0.2); BILIRUBIN,TOTAL 0.4 MG/DL (0.2-1.0); BLOOD UREA NITROGEN 11 MG/DL (7-18); CALCIUM LEVEL 8.9 MG/DL (8.8-10.2); CARBON DIOXIDE LEVEL 28 MEQ/L (21-32); CHLORIDE LEVEL 102 MEQ/L (98-107); CREATININE FOR GFR 0.78 MG/DL (0.55-1.30); GLOMERULAR FILTRATION RATE > 60.0 (>39); GLUCOSE, FASTING 121 MG/DL (70-100); POTASSIUM SERUM 3.8 MEQ/L (3.5-5.1); SODIUM LEVEL 136 MEQ/L (136-145); TOTAL PROTEIN 6.9 GM/DL (6.4-8.2)
[2021-04-07 13:58] LABS: ERYTHROCYTE SEDIMENTATION RATE 64 mm/hr (0-30)
== END ==
LOC: M PLALAB 10:17
PROVIDERS: ATTEND Internal Medicine
DX: M05.79 Rheumatoid arthritis with rheumatoid factor of multiple sites without organ or systems involvement (principal)

== ENCOUNTER → 2022-02-01 | Outpatient (REF) | payer MEDICARE ==
[~2022-02-01] MED LIST changes: -CEFD1CAP8 PO; +CEFD300C41 PO; +OMEP-173 PO; -OMEP-218 PO
== END ==
LOC: M SFHCRHEU 13:03
PROVIDERS: ATTEND Internal Medicine
DX: M05.79 Rheumatoid arthritis with rheumatoid factor of multiple sites without organ or systems involvement (principal)

== ENCOUNTER → 2024-02-13 | Outpatient (REF) | payer MEDICARE ==
[~2024-02-13] MED LIST changes: +CEFD1CAP9 PO; -CEFD300C41 PO; -TRIA37.53 PO; +TRIA37.577 PO
== END ==
LOC: M SFHCRHEU 12:23
PROVIDERS: ATTEND Internal Medicine
DX: M05.79 Rheumatoid arthritis with rheumatoid factor of multiple sites without organ or systems involvement (principal)